=== PATIENT | male | born 1955 | race Caucasian/White ===

== ENCOUNTER → 2021-08-04 | Outpatient (CLI) | payer MEDICARE ==
--- NOTE | 2021-08-05 01:43 | MR ---
EXAMINATION TYPE: MR lumbar spine wo con DATE OF EXAM: 08/04/2021 COMPARISON: None HISTORY: Lower left back pain since 2009, history of surgery 2013 Multiplanar multiecho imaging of the lumbar spine with no contrast. Normal alignment. There is narrowing of disc spaces throughout the lumbar spine and more severe at L3 -4 and L4-5. There is significant sclerosis on both sides of the L3-4 disc. There is posterior disc h erniation at L3-4 and impingement on the spinal canal. There is developmentally large canal and no si gnificant spinal stenosis. There is no paraspinal mass. No compression fracture. There is bilateral n eural foraminal narrowing at L3-4 due to facet arthropathy and disc space narrowing. There is neural foraminal narrowing bilaterally from L3 to S1 due to the facet arthropathy and disc space narrowing. There is apparent L4 laminectomy defect. IMPRESSION: Multilevel spondylotic changes. No acute bony abnormality. Bilateral multilevel neural foraminal narr owing due to facet arthropathy and disc space narrowing. Previous surgery. There is not a significant spinal stenosis.
== END | disposition home or self-care (01) ==
LOC: RADMRIMAIN 17:47
PROVIDERS: ATTEND Physical Medicine & Rehabilitation
DX: M47.817 Spondylosis without myelopathy or radiculopathy, lumbosacral region (principal); M43.16 Spondylolisthesis, lumbar region; M41.86 Other forms of scoliosis, lumbar region
CPT/HCPCS: 72148